=== PATIENT | male | born 1940 | race Caucasian/White ===

== ENCOUNTER 2019-10-20 06:32 | Day surgery (SDC) | payer MEDICARE ==
[2019-10-19 15:48] VITALS: BMI 26.7
[2019-10-20 07:28] LABS: #Eosinphils 0.2 thou/uL (0.0-0.7); #Lymphocytes 1.4 thou/uL (1.20-3.40); #Monocytes 0.7 thou/uL (0.11-0.59); #Neutrophils 3.3 thou/uL (1.40-6.50); %Basophils 0.6 % (0.0-1.0); %Eosinophils 4.2 % (0.0-10.0); %Lymphocytes 25.4 % (21.0-51.0); %Monocytes 11.9 % (0.0-10.0); %Neutrophils 57.9 % (42.0-75.0); Hemoglobin 15.6 g/dL (14.0-18.0); Mean Corpuscular HGB CONC 32.4 g/dL (32.0-36.0); Mean Corpuscular Hemoglobin 30.7 pg (27.0-31.0); Mean Corpuscular Volume 94.8 fL (78.0-98.0); Mean Platelet Volume 8.3 fL (7.4-10.4); Platelet Count 182 thou/uL (130-400); RBC Distribution Width 11.8 % (11.5-14.5); Red Blood Cell (RBC) Count 5.08 mill/uL (4.70-6.10); White Blood Cell (WBC) Count 5.6 thou/uL (4.8-10.8)
[2019-10-20 07:32] LABS: Anion Gap 12 mmol/L (10-20); BUN (Urea Nitrogen) 24 mg/dL (8.4-25.7); Calc. Creatinine Clearance 73 mL/min (70-130); Calcium 9.1 mg/dL (7.8-10.44); Carbon Dioxide 22 mmol/L (23-31); Chloride 107 mmol/L (98-107); Estimated GFR-MDRD 60; Glucose 91 mg/dL (83-110); Potassium 4.4 mmol/L (3.5-5.1); Sodium 137 mmol/L (136-145)
[2019-10-20] MEDS ORDERED: PROPOFOL 20 ML ONE (07:52)
[2019-10-20] MEDS ORDERED: Fentanyl 100 MCG/2 ML VIAL ONE (08:43)
--- NOTE | 2019-10-20 10:37 | OP ---
DATE OF PROCEDURE: 10/20/2019 PREOPERATIVE DIAGNOSIS: Left knee medial meniscus tear. POSTOPERATIVE DIAGNOSES: 1. Left knee medial meniscus tear. 2. Grade 4 lesion, medial femoral condyle, some unstable chondral flaps as well as some grade 2 and 3 changes to the patella. PROCEDURES PERFORMED: 1. Left knee arthroscopy with partial medial meniscectomy. 2. Debridement and shaving of all unstable chondral flaps. SURGICAL ASSISTANT CERTIFIED: None. ESTIMATED BLOOD LOSS: Minimal. COMPLICATIONS: None. ANESTHESIA: The patient did have a general anesthetic as well as a local knee block. DISPOSITION: He did go to recovery room in stable condition. INDICATIONS FOR PROCEDURE: This is an active 79-year-old male, who came in complaining of pain, catching and swelling, and at this time wished to have surgery to remedy this. DESCRIPTION OF PROCEDURE: After all appropriate consent forms were explained and signed, he was taken to the operative room and at this time was given general anesthetic. Once the level of anesthesia was appropriate, a tourniquet was placed on the left thigh. Leg was placed in arthroscopic leg gorman. The limb was then prepped and draped in standard surgical fashion. The limb was then exsanguinated and tourniquet was taken to 300 mmHg. Inferolateral portal was then established. Scope was placed into the knee joint. A needle localization technique was then used to make a medial working portal. Diagnostic arthroscopy was commenced in the notch. The ACL and PCL were probed and found to be intact. The medial compartment was evaluated. There was a complex tear of the body as well as a posterior horn of the medial meniscus. There were significant calcifications noted throughout, and a combination of biter and shaver were used to remove these torn areas of meniscus which had large unstable flaps. The one in the posterior horn had flipped posterior to the medial femoral condyle and one in the body had flipped underneath the meniscus. Once these were cleaned out, we turned our attention to the tibia, which overall was in good condition. There was some limited cobblestoning, but nothing significant. The femur, however, had a grade 4 lesion with some unstable chondral flaps. These were taken down. The remaining femur had fairly intact cartilage, but did have a lot of global grade 2 changes. The lateral compartment really just showed a little bit of calcification in the meniscus as well as the tibial plateau cartilage, otherwise the remaining lateral compartment was in excellent condition. The gutters were swept through. There was a loose piece of calcified meniscus, which was floating up in the suprapatellar pouch. This was actually felt to then visualize on his plain film. This was removed from the joint. The remaining gutter evaluation was clean. The patellofemoral joint showed the trochlea to be in good condition. The patella itself had some minimal grade 2 changes proximally, but the majority of patella overall was intact. At this time, we went through the knee one more time looking for any remaining loose pieces, and once we were satisfied there were none, the scope was removed. The knee was drained. The portals were closed with a simple nylon stitch. Bulky sterile dressing was then applied. Tourniquet was let down. Toes pinked up nicely. The patient was awakened and taken to recovery room in stable condition. All counts were correct at the end of the case and he did receive preoperative IV antibiotics. Job ID: [id number]
[2019-10-20] MEDS ORDERED: Bupivacaine HCl 0.5%/Epinephrine 1:200,000/PF 30 ml Vial ONE (10:43)
[2019-10-20] MEDS ORDERED: PROPOFOL 200 MG/20 ML VIAL ONE (10:43)
[2019-10-20] MEDS ORDERED: Dexamethasone 20 MG/5 ML VIAL ONE (10:43)
[2019-10-20] MEDS ORDERED: Glycopyrrolate 0.2 MG/ML 5 ML SYRINGE ONE (10:43)
[2019-10-20] MEDS ORDERED: Ondansetron PF 4 MG/2 ML Vial ONE (10:43)
[2019-10-20] MEDS ORDERED: EPHEDRINE 25 MG/5 ML SYRINGE ONE (10:43)
[2019-10-20] MEDS ORDERED: Lidocaine 2% w/Epinephrine 1:200K 20 ML VIAL ONE (10:43)
== END 2019-10-20 12:10 | disposition home or self-care (01) ==
LOC: SDC 06:32
PROVIDERS: ATTEND Orthopaedic Surgery
PROC: 0SBD4ZZ Excision of Left Knee Joint, Percutaneous Endoscopic Approach (ICD-10-PCS; principal; 2019-10-20)
DX: S83.232A Complex tear of medial meniscus, current injury, left knee, initial encounter (principal); M17.12 Unilateral primary osteoarthritis, left knee; I10 Essential (primary) hypertension; E78.00 Pure hypercholesterolemia, unspecified; Z79.82 Long term (current) use of aspirin; Z79.899 Other long term (current) drug therapy; Z95.1 Presence of aortocoronary bypass graft
CPT/HCPCS: 80048; 85025; 93005; 93010; J0670; J0690; J1100; J2405; J2704; J3010

== ENCOUNTER 2022-03-02 17:44 | Inpatient (IN) | payer MEDICARE ==
[2022-03-02 18:16] LABS: #Basophils 0.1 thou/uL (0.0-0.2); #Eosinphils 0.4 thou/uL (0.0-0.7); #Lymphocytes 1.7 thou/uL (1.20-3.40); #Monocytes 0.6 thou/uL (0.11-0.59); %Basophils 1.1 % (0.0-1.0); %Eosinophils 5.6 % (0.0-10.0); %Lymphocytes 24.9 % (21.0-51.0); %Monocytes 9.4 % (0.0-10.0); Hemoglobin 15.4 g/dL (14.0-18.0); Mean Corpuscular HGB CONC 33.9 g/dL (32.0-36.0); Mean Corpuscular Hemoglobin 32.7 pg (27.0-31.0); Mean Corpuscular Volume 96.7 fL (78.0-98.0); Mean Platelet Volume 7.2 fL (7.4-10.4); Platelet Count 165 thou/uL (130-400); RBC Distribution Width 12.1 % (11.5-14.5); Red Blood Cell (RBC) Count 4.71 mill/uL (4.70-6.10); White Blood Cell (WBC) Count 6.7 thou/uL (4.8-10.8)
[2022-03-02 18:38] LABS: ALT (SGPT) 23 U/L (8-55); AST (SGOT) 27 U/L (5-34); Albumin 4.1 g/dL (3.4-4.8); Alkaline Phosphatase 65 U/L (40-110); Anion Gap 14 mmol/L (10-20); BUN (Urea Nitrogen) 25 mg/dL (8.4-25.7); Calc. Creatinine Clearance 0 mL/min (70-130); Calcium 9.3 mg/dL (7.8-10.44); Carbon Dioxide 25 mmol/L (23-31); Chloride 105 mmol/L (98-107); Globulin 2.5 g/dL (2.4-3.5); Glucose 93 mg/dL (83-110); Potassium 4.8 mmol/L (3.5-5.1); Protein, Total 6.6 g/dL (5.8-8.1); Sodium 139 mmol/L (136-145)
[2022-03-02] MEDS ORDERED: Ondansetron ODT 4 MG TAB PO PRN (20:19)
[2022-03-02] MEDS ORDERED: Acetaminophen 650 MG Suppository PR PRN (20:19)
[2022-03-02] MEDS ORDERED: Acetaminophen 325 MG TAB PO PRN (20:19)
[2022-03-02] MEDS ORDERED: Ondansetron PF 4 MG/2 ML Vial IVP PRN (20:19)
[2022-03-02 20:59] LABS: Bilirubin Negative (Negative); Blood, Urine Negative (Negative); Clarity Clear (Clear); Glucose, Urine (Dipstick) Normal (Negative); Ketone, Urine Negative (Negative); Leukocyte Negative Leu/uL (Negative); Nitrite Negative (Negative); Protein, Urine (Dipstick) Negative (Neg-Trace); Specific Gravity, Urine 1.027 (1.002-1.036); Urobilinogen Normal mg/dL (Less than 2); pH, Urine 5.5 (5.0-9.0)
[2022-03-02 21:39] VITALS: BMI 26.5
[2022-03-02] MEDS: Atorvastatin Calcium 40 MG TAB PO SCH (22:02)
[2022-03-03 04:45] LABS: #Eosinphils 0.5 thou/uL (0.0-0.7); #Lymphocytes 1.6 thou/uL (1.20-3.40); #Monocytes 0.6 thou/uL (0.11-0.59); #Neutrophils 2.4 thou/uL (1.40-6.50); %Basophils 0.9 % (0.0-1.0); %Eosinophils 8.9 % (0.0-10.0); %Lymphocytes 31.3 % (21.0-51.0); %Monocytes 12.4 % (0.0-10.0); %Neutrophils 46.5 % (42.0-75.0); Hemoglobin 13.3 g/dL (14.0-18.0); Mean Corpuscular Hemoglobin 32.1 pg (27.0-31.0); Mean Corpuscular Volume 97.5 fL (78.0-98.0); Mean Platelet Volume 7.3 fL (7.4-10.4); Platelet Count 147 thou/uL (130-400); RBC Distribution Width 12.1 % (11.5-14.5); Red Blood Cell (RBC) Count 4.15 mill/uL (4.70-6.10); White Blood Cell (WBC) Count 5.1 thou/uL (4.8-10.8)
[2022-03-03 05:15] LABS: Anion Gap 9 mmol/L (10-20); BUN (Urea Nitrogen) 22 mg/dL (8.4-25.7); Calc. Creatinine Clearance 71 mL/min (70-130); Calcium 8.6 mg/dL (7.8-10.44); Carbon Dioxide 25 mmol/L (23-31); Chloride 107 mmol/L (98-107); Glucose 87 mg/dL (83-110); Potassium 4.3 mmol/L (3.5-5.1); Sodium 137 mmol/L (136-145)
[2022-03-03] MEDS: Aspirin 81 mg Enteric Coated Tablet PO SCH (09:16)
[2022-03-03] MEDS ORDERED: Labetalol HCl 100 MG/20 ML VIAL SLOW IVP PRN (17:58)
[2022-03-03] MEDS ORDERED: Lisinopril 20 MG TAB PO SCH (21:00)
[2022-03-03] MEDS: Atorvastatin Calcium 40 MG TAB PO SCH (21:22)
[2022-03-03] MEDS: Metoprolol Tartrate 25 MG TAB PO SCH (21:23)
[2022-03-04 05:03] LABS: #Basophils 0.1 thou/uL (0.0-0.2); #Eosinphils 0.4 thou/uL (0.0-0.7); #Lymphocytes 1.3 thou/uL (1.20-3.40); #Monocytes 0.6 thou/uL (0.11-0.59); %Basophils 1.2 % (0.0-1.0); %Eosinophils 6.8 % (0.0-10.0); %Monocytes 11.6 % (0.0-10.0); %Neutrophils 55.4 % (42.0-75.0); Hemoglobin 14.6 g/dL (14.0-18.0); Mean Corpuscular Hemoglobin 32.2 pg (27.0-31.0); Mean Corpuscular Volume 97.5 fL (78.0-98.0); Mean Platelet Volume 7.4 fL (7.4-10.4); Platelet Count 158 thou/uL (130-400); RBC Distribution Width 12.2 % (11.5-14.5); Red Blood Cell (RBC) Count 4.54 mill/uL (4.70-6.10); White Blood Cell (WBC) Count 5.3 thou/uL (4.8-10.8)
[2022-03-04 05:26] LABS: Anion Gap 11 mmol/L (10-20); BUN (Urea Nitrogen) 13 mg/dL (8.4-25.7); Calc. Creatinine Clearance 82 mL/min (70-130); Calcium 8.7 mg/dL (7.8-10.44); Carbon Dioxide 25 mmol/L (23-31); Chloride 106 mmol/L (98-107); Glucose 89 mg/dL (83-110); Potassium 4.3 mmol/L (3.5-5.1); Sodium 138 mmol/L (136-145)
[2022-03-04] MEDS: Metoprolol Tartrate 25 MG TAB PO SCH (08:08)
[2022-03-04] MEDS: Aspirin 81 mg Enteric Coated Tablet PO SCH (08:08)
[2022-03-04] MEDS ORDERED: Lisinopril 20 MG TAB PO SCH ×2 (10:15→21:00)
[2022-03-04 11:55] VITALS: BP 121/68; TEMP 97.6
== END 2022-03-04 13:54 | disposition home or self-care (01) | DRG 310 ==
LOC: ERS 17:44 → 2SW 19:55 → OBSVTOIN 03-04 12:00
PROVIDERS: ADMIT Student in an Organized Health Care Education/Training Program; ATTEND Hospitalist
DX: I48.91 Unspecified atrial fibrillation (principal); R55 Syncope and collapse; E78.5 Hyperlipidemia, unspecified; I10 Essential (primary) hypertension; I35.0 Nonrheumatic aortic (valve) stenosis; E78.00 Pure hypercholesterolemia, unspecified; I25.10 Atherosclerotic heart disease of native coronary artery without angina pectoris; R42 Dizziness and giddiness; I27.20 Pulmonary hypertension, unspecified; Z95.1 Presence of aortocoronary bypass graft; Z79.82 Long term (current) use of aspirin; Z79.899 Other long term (current) drug therapy; Z98.890 Other specified postprocedural states
CPT/HCPCS: 36415; 71045; 80048; 80053; 81003; 83880; 84484; 85025; 93005; 96360; 96361; G0378; U0003; U0005

== ENCOUNTER 2023-01-15 14:19 | Outpatient (CLI) | payer MEDICARE ==
[2023-01-15 16:01] LABS: Bilirubin Neg (Negative); Blood, Urine 10 (Negative); Clarity Clear (Clear); Glucose, Urine (Dipstick) Normal (Negative); Ketone, Urine Negative (Negative); Leukocyte Negative (Negative); Nitrite Negative (Negative); Protein, Urine (Dipstick) Negative (Neg-Trace); Specific Gravity, Urine 1.015 (1.005-1.030); Urobilinogen Normal mg/dL (Less than 2)
[2023-01-15 16:11] LABS: #Basophils 0.1 10x3/uL (0.0-0.2); #Eosinphils 0.2 10x3/uL (0.0-0.5); #Monocytes 0.6 10x3/uL (0.0-1.1); #Neutrophils 3.4 10x3/uL (1.5-8.4); %Basophils 0.9 % (0.0-2.0); %Eosinophils 3.8 % (0.0-6.0); %Lymphocytes 22.8 % (18.0-47.0); %Monocytes 11.4 % (0.0-10.0); %Neutrophils 60.9 % (40.0-75.0); Hemoglobin 13.7 g/dL (13.5-17.5); Mean Corpuscular HGB CONC 32.5 g/dL (32.0-36.0); Mean Corpuscular Hemoglobin 29.9 pg (27.0-33.0); Mean Corpuscular Volume 91.9 fl (81.2-95.1); Mean Platelet Volume 10.3 fl (7.4-10.4); Platelet Count 174 10x3/uL (150-450); RBC Distribution Width 13.5 % (11.5-14.5); Red Blood Cell (RBC) Count 4.58 10x6/uL (4.32-5.72); White Blood Cell (WBC) Count 5.5 10x3/uL (3.5-10.5)
[2023-01-15 16:17] LABS: Prothrombin Time 10.3 sec (9.5-12.1)
[2023-01-15 16:22] LABS: Anion Gap 12 mmol/L (10-20); BUN (Urea Nitrogen) 22 mg/dL (8.4-25.7); Calc. Creatinine Clearance 0 mL/min (70-130); Calcium 8.5 mg/dL (7.8-10.44); Carbon Dioxide 23 mmol/L (23-31); Chloride 108 mmol/L (98-107); Estimated GFR 73; Glucose 88 mg/dL (83-110); Potassium 4.3 mmol/L (3.5-5.1); Sodium 139 mmol/L (136-145)
== END 2023-01-15 14:20 | disposition home or self-care (01) ==
LOC: LABBT 14:19
PROVIDERS: ATTEND Orthopaedic Surgery
DX: Z01.818 Encounter for other preprocedural examination (principal); Z96.652 Presence of left artificial knee joint
CPT/HCPCS: 71046; 80048; 81003; 85025; 85610; 86850; 86900; 86901; 87081; 93005; 93010

== ENCOUNTER 2023-01-20 05:29 | Observation (INO) | payer MEDICARE ==
[2023-01-15 15:37] VITALS: BMI 26.7
[2023-01-20] MEDS ORDERED: Midazolam HCl 2 mg/2 ml Vial ONE ×2 (06:18→06:45)
[2023-01-20] MEDS ORDERED: fentaNYL PF 100 MCG/2 ML SYRINGE ONE (06:19)
[2023-01-20] MEDS ORDERED: Bupivacaine PF 0.5% 30 ML VIAL ONE ×2 (06:28→06:45)
[2023-01-20] MEDS ORDERED: Vancomycin (BATCH) 1.5 GRAM/300 ML BAG ONE (06:33)
[2023-01-20] MEDS ORDERED: Sodium Chloride 0.9% 100 ML ONE ×2 (06:33→06:48)
[2023-01-20] MEDS ORDERED: Tranexamic Acid 1,000 MG/10 ML VIAL ONE ×2 (06:33→09:25)
[2023-01-20] MEDS ORDERED: Ondansetron HCl/PF 4 MG/2 ML Vial IVP PRN (06:43)
[2023-01-20] MEDS ORDERED: Promethazine HCl 25 MG/ML VIAL IM PRN ×3 (06:43→08:57)
[2023-01-20] MEDS ORDERED: HYDROmorphone 2 MG/ML VIAL SLOW IVP PRN (06:43)
[2023-01-20] MEDS ORDERED: fentaNYL 50 mcg/mL 1 mL Vial ONE ×2 (06:45→09:38)
[2023-01-20] MEDS ORDERED: CEFAZOLIN 2 GM VIAL ONE (06:48)
[2023-01-20] MEDS ORDERED: Ondansetron PF 4 MG/2 ML Vial ONE (07:09)
[2023-01-20] MEDS ORDERED: PROPOFOL 200 MG/20 ML VIAL ONE (07:09)
[2023-01-20] MEDS ORDERED: Lidocaine 1% PF 5 ML VIAL ONE (07:09)
[2023-01-20] MEDS ORDERED: Bupivacaine HCl 0.5%/Epinephrine 1:200,000/PF 30 ml Vial ONE (07:09)
[2023-01-20] MEDS ORDERED: ePHEDrine Sulfate 50 MG/10 ML VIAL ONE (07:09)
[2023-01-20] MEDS ORDERED: Dexamethasone 20 MG/5 ML VIAL ONE (07:09)
[2023-01-20] MEDS ORDERED: fentaNYL 50 mcg/mL 1 mL Vial SLOW IVP PRN (07:50)
[2023-01-20] MEDS ORDERED: Zolpidem Tartrate 5 MG TAB PO PRN ×2 (08:00→08:57)
[2023-01-20] MEDS ORDERED: Ondansetron PF 4 MG/2 ML Vial IVP PRN ×2 (08:00→08:57)
[2023-01-20] MEDS ORDERED: HYDROcodone/Acetaminophen 10/325 mg Tablet PO PRN ×2 (08:00)
[2023-01-20] MEDS ORDERED: traMADol HCl 50 MG TAB PO PRN ×2 (08:00)
[2023-01-20] MEDS ORDERED: Ropivacaine 0.2% 550 ML 550 ML NERVE BLCK SCH (08:00)
[2023-01-20] MEDS ORDERED: HYDROmorphone 2 MG/ML VIAL ONE (08:19)
[2023-01-20] MEDS ORDERED: Acetaminophen 325 MG TAB PO PRN (08:57)
[2023-01-20] MEDS ORDERED: diphenhydrAMINE 25 MG CAP PO PRN (08:57)
[2023-01-20] MEDS ORDERED: Fentanyl 100 MCG/2 ML VIAL SLOW IVP PRN (08:57)
[2023-01-20] MEDS ORDERED: CeleCOXIB 100 MG CAP PO PRN (08:58)
[2023-01-20] MEDS ORDERED: Aspirin 81 mg Enteric Coated Tablet PO SCH (09:00)
[2023-01-20] MEDS ORDERED: Vancomycin HCl 1.5 GM in Sodium Chloride 0.9% 250 ML 300 ML IVPB SCH (09:00)
[2023-01-20] MEDS ORDERED: Tranexamic Acid 1,000 MG in Sodium Chloride 0.9% 100 ML IVPB SCH (09:00)
[2023-01-20] MEDS: Aspirin 81 mg Enteric Coated Tablet PO SCH ×2 (11:40→19:50)
[2023-01-20] MEDS: Ferrous Gluconate 324 MG TAB PO SCH ×2 (11:40→19:50)
[2023-01-20] MEDS: Lisinopril 10 MG TAB PO SCH (11:40)
[2023-01-20] MEDS: Sodium Chloride 0.9% 1,000 ML IV SCH ×2 (11:41→19:46)
[2023-01-20] MEDS: Senokot S 8.6-50 MG TAB PO SCH ×2 (11:41→19:50)
[2023-01-20] MEDS: Multivitamin W/ Minerals 1 TAB PO SCH (11:41)
[2023-01-20] MEDS: Ketorolac Tromethamine 30 MG/ML VIAL IVP SCH ×3 (13:00→23:36)
[2023-01-20] MEDS: CEFAZOLIN 2 GM in Sodium Chloride 0.9% 100 ML IVPB SCH ×2 (15:26→22:20)
[2023-01-20] MEDS ORDERED: Vancomycin 1.5 GRAM/300 ML BAG 1.5 GM in Premix Bag 1 BAG IVPB SCH (18:00)
[2023-01-20] MEDS ORDERED: Lisinopril 20 MG TAB PO SCH (21:00)
[2023-01-20] MEDS ORDERED: Atorvastatin Calcium 20 MG TAB PO SCH (21:00)
[2023-01-21 05:33] LABS: Hemoglobin 11.4 g/dL (14.0-18.0); Mean Corpuscular HGB CONC 32.5 g/dL (32.0-36.0); Mean Corpuscular Hemoglobin 30.3 pg (27.0-31.0); Mean Corpuscular Volume 93.4 fl (78.0-98.0); Mean Platelet Volume 10.5 fL (7.4-10.4); Platelet Count 128 10x3/uL (130-400); RBC Distribution Width 13.5 % (11.5-14.5); Red Blood Cell (RBC) Count 3.76 mill/uL (4.70-6.10); White Blood Cell (WBC) Count 13.2 10x3/uL (4.8-10.8)
[2023-01-21] MEDS: Ketorolac Tromethamine 30 MG/ML VIAL IVP SCH ×2 (05:48→11:13)
[2023-01-21] MEDS: Lisinopril 10 MG TAB PO SCH (08:28)
[2023-01-21] MEDS: Aspirin 81 mg Enteric Coated Tablet PO SCH (08:28)
[2023-01-21] MEDS: Ferrous Gluconate 324 MG TAB PO SCH (08:28)
[2023-01-21] MEDS: Multivitamin W/ Minerals 1 TAB PO SCH (08:28)
[2023-01-21] MEDS: Senokot S 8.6-50 MG TAB PO SCH (08:28)
[2023-01-21 12:34] VITALS: BP 123/71; TEMP 98.3
[2023-01-21] MEDS ORDERED: Tamsulosin HCl 0.4 MG CAP PO SCH (13:15)
[2023-01-21] MEDS: Sodium Chloride 0.9% 1,000 ML IV SCH (14:12)
== END 2023-01-21 15:12 | disposition home or self-care (01) ==
LOC: SDC 05:29 → SJJU 10:56
PROVIDERS: ADMIT Orthopaedic Surgery; ATTEND Orthopaedic Surgery
PROC: 0SRD0J9 Replacement of Left Knee Joint with Synthetic Substitute, Cemented, Open Approach (ICD-10-PCS; principal; 2023-01-20)
DX: M17.12 Unilateral primary osteoarthritis, left knee (principal); I10 Essential (primary) hypertension; Z79.82 Long term (current) use of aspirin; Z79.899 Other long term (current) drug therapy; Z95.1 Presence of aortocoronary bypass graft
CPT/HCPCS: 20985; 27447; 85027; 97110 ×2; 97116 ×2; 97530; A4306; C1713; C1776; J3010; J3370; 36415; J1100; J1170; J1885; J2250; J2405; J2704; J2795; J3490; S0020

== ENCOUNTER 2024-09-16 09:05 | Outpatient (CLI) | payer MEDICARE ==
[2024-09-16 11:26] LABS: #Basophils 0.07 10x3/uL (0.0-0.2); %Basophils 1.1 % (0.0-1.0); %Eosinophils 2.6 % (0.0-10.0); %Lymphocytes 20.3 % (21.0-51.0); %Monocytes 12.5 % (0.0-10.0); %Neutrophils 63.2 % (42.0-75.0); Hematocrit 41.9 % (42.0-52.0); Hemoglobin 13.8 g/dL (14.0-18.0); Mean Corpuscular HGB CONC 32.9 g/dL (32.0-36.0); Mean Corpuscular Hemoglobin 30.7 pg (27.0-31.0); Mean Corpuscular Volume 93.1 fL (78.0-98.0); Mean Platelet Volume 10.2 fL (7.4-10.4); Platelet Count 204 10x3/uL (130-400); RBC Distribution Width 13.7 % (11.5-14.5)
[2024-09-16 11:38] LABS: Bilirubin Negative (Negative); Blood, Urine Negative (Negative); Clarity Clear (Clear); Glucose, Urine (Dipstick) Normal (Negative); Ketone, Urine Negative (Negative); Leukocyte Negative Leu/uL (Negative); Nitrite Negative (Negative); Protein, Urine (Dipstick) Negative (Neg-Trace); Specific Gravity, Urine 1.013 (1.002-1.036); Urobilinogen Normal mg/dL (Less than 2); pH, Urine 6.5 (5.0-9.0)
[2024-09-16 11:40] LABS: Prothrombin Time 22.4 sec (12.0-14.7)
[2024-09-16 11:55] LABS: Anion Gap 10 mmol/L (10-20); BUN (Urea Nitrogen) 15 mg/dL (8.4-25.7); Calc. Creatinine Clearance 0 mL/min (70-130); Calcium 9.2 mg/dL (7.8-10.44); Carbon Dioxide 27 mmol/L (23-31); Chloride 104 mmol/L (98-107); Estimated GFR 83; Glucose 84 mg/dL (83-110); Sodium 137 mmol/L (136-145)
== END 2024-09-16 09:06 | disposition home or self-care (01) ==
LOC: LABBT 09:05
PROVIDERS: ATTEND Orthopaedic Surgery
DX: Z01.818 Encounter for other preprocedural examination (principal); M17.11 Unilateral primary osteoarthritis, right knee
CPT/HCPCS: 71046; 80048; 81003; 85025; 85610; 87081; 93005; 93010